=== PATIENT | male | born 1990 | race African-American/Black ===

== ENCOUNTER → 2017-11-08 16:49 | Outpatient (CLI) | payer OTHER, SELFPAY ==
--- NOTE | 2017-11-08 16:54 | DI.MRI.S_ITS ---
PROCEDURE: MR KNEE RT WO CON INDICATIONS: RIGHT KNEE PAIN TECHNIQUE: Noncontrast sagittal PD fast spin echo and T2 fast spin echo with fat saturation, sagittal 3-D FLASH with fat saturation; coronal T1 spin echo and PD fast spin echo with fat saturation, and axial PD fast spin echo with fat saturation through the knee. COMPARISON: None. FINDINGS: Image quality: Diagnostic. Bones and joint: There is no acute fracture or dislocation. No suspicious osseous lesions are evident. There is a small knee joint effusion without significant fluid extending into a Palacios's cyst. There is heterogeneity of the hyaline articular cartilage within the patellofemoral compartment. No definite full-thickness cartilaginous defects are identified. Cruciate ligaments: The anterior cruciate ligament is moderately heterogeneous and demonstrates increased signal between the 2 major fibers of the ACL which may represent partial-thickness tearing. No full-thickness tear is evident. The posterior cruciate ligament is intact. Menisci: Discoid morphology of the lateral meniscus is present. However, no discrete lateral meniscal tear is evident. The medial meniscus is intact. However, there is increased signal identified along the posterior horn of the medial meniscus that extends towards the inferior articular surface. No displaced rib discrete tear is evident. Medial structures: The medial collateral ligament is intact. The semimembranosus tendon insertion is intact. The imaged portions of the pes anserinus tendons are unremarkable. No significant fluid is contained within the pes anserinus bursa. Lateral structures: The popliteal tendon is mildly edematous and slightly thickened at its femoral origin. The lateral collateral ligament proper (fibular collateral ligament) and the proximal tibiofibular ligaments are intact. The distal aspect of the biceps femoris tendon and the iliotibial band are intact. Anterior structures: The distal quadriceps tendon is within normal limits. There is thickening and increased signal identified involving the proximal patellar tendon. A small portion of the lateral aspect of the proximal patellar tendon extends over the anterior margin of the lateral femoral condyle. There is moderate edema identified within the superolateral aspect of the infrapatellar fat pad. IMPRESSION: 1. Moderate proximal patellar tendinopathy with the lateral portion of this tendon extending over the anterior margin of the lateral femoral condyle. Please correlate clinically for lateral femoral condyle-patellar tendon friction syndrome. 2. Probable contusion of the medial meniscus. A discrete meniscal tear is not evident. 3. Probable partial-thickness tear of the anterior cruciate ligament likely is subacute. 4. Proximal popliteal tendinopathy. 5. Small knee effusion. Dictated by: Ward Nance M.D. on 11/08/2017 at 17:14 Approved by: Ward Nance M.D. on 11/08/2017 at 17:18
== END ==
PROVIDERS: Visit Provider General Practice
DX: M25.561 Pain in right knee (principal); M25.461 Effusion, right knee
CPT/HCPCS: 73721

== ENCOUNTER → 2020-02-18 08:28 | Outpatient (CLI) | payer OTHER, SELFPAY ==
[2020-02-18 11:06] LABS: COVID19 -Nasal RAPID Negative (Negative)
== END ==
PROVIDERS: Visit Provider Family Medicine Sleep Medicine
DX: Z01.812 Encounter for preprocedural laboratory examination (principal); Z20.822 Contact with and (suspected) exposure to COVID-19
CPT/HCPCS: 87635; C9803